=== PATIENT | female | born 1965 | race Hispanic/Latino ===

== ENCOUNTER 2018-10-21 08:12 | Outpatient (CLI) | payer OTHER ==
--- NOTE | 2018-10-21 09:17 | ULT ---
PELVIC ULTRASOUND INCLUDING TRANSABDOMINAL AND TRANSVAGINAL AND VASCULAR DUPLEX WITH COLOR AND SPECTR AL DOPPLER IMAGING: HISTORY: Pelvic pain, prior hysterectomy. FINDINGS: Status post hysterectomy. The left ovary is not seen. Right ovary is within normal limits. Vascular f low is documented. No evidence for ovarian torsion. No abnormal fluid collection. IMPRESSION: Unremarkable post hysterectomy pelvis. Transcribed Date/Time: 10/21/2018 9:29 AM
== END 2018-10-21 08:13 | disposition home or self-care (01) ==
LOC: SCSULT 08:12
PROVIDERS: ATTEND Family Medicine
DX: R10.2 Pelvic and perineal pain (principal); Z90.710 Acquired absence of both cervix and uterus
CPT/HCPCS: 76856

== ENCOUNTER 2018-10-21 08:17 | Outpatient (CLI) | payer OTHER ==
--- NOTE | 2018-10-21 10:08 | MMO ---
Bilateral MAMMO Bilat Screen [facility]. CLINICAL HISTORY: Patient is 52 years old and is seen for screening. The patient has no family history of breast cancer. The patient has no personal history of cancer. The patient has a history of right Excisional Biopsy in 2004 - benign. VIEWS: The views performed were: bilateral craniocaudal and bilateral mediolateral oblique. FILMS COMPARED: The present examination has been compared to prior imaging studies performed at [facility] on 04/11/2004 and 04/03/2016. This study has been interpreted with the assistance of computer-aided detection. MAMMOGRAM FINDINGS: The breasts are heterogeneously dense, which could obscure a lesion on mammography. There are multiple stable nodules of varying size seen in both breasts. There are no suspicious masses, suspicious calcifications, or new areas of architectural distortion. IMPRESSION: THERE IS NO MAMMOGRAPHIC EVIDENCE OF MALIGNANCY. A ROUTINE FOLLOW-UP MAMMOGRAM IN 1 YEAR IS RECOMMENDED. ACR BI-RADS Category 2 - Benign finding MAMMOGRAPHY NOTE: 1. A negative mammogram report should not delay a biopsy if a dominant of clinically suspicious mass is present. 2. Approximately 10% to 15% of breast cancers are not detected by mammography. 3. Adenosis and dense breasts may obscure an underlying neoplasm. Reported by: JULIAN DAWN MD Electonically Signed: [id number]
== END 2018-10-21 08:18 | disposition home or self-care (01) ==
LOC: SCSMAMMO 08:17
PROVIDERS: ATTEND Family Medicine
DX: Z12.31 Encounter for screening mammogram for malignant neoplasm of breast (principal)
CPT/HCPCS: 77067

== ENCOUNTER 2019-08-27 09:41 | Outpatient (CLI) | payer OTHER ==
--- NOTE | 2019-08-27 10:50 | MRI ---
LUMBAR SPINE MRI WITH AND WITHOUT CONTRAST: HISTORY: Low back pain, radiating down the left leg since February. COMPARISON: None. FINDINGS: Appropriate T1 marrow signal intensity of the lumbar vertebrae. Lumbar spine vertebral body height is maintained. No fracture. No significant STIR hyperintensity to suggest vertebral body edema or ligamentous injury. Appropriate signal intensity of the visualized paraspinal muscles and solid organs. Conus medullaris terminates at the T12-L1 disc space. Postcontrast images do not demonstrate any abnormal enhancement with regards to the contents of the t hecal sac including the cauda equina and conus medullaris. There is no abnormal enhancement with regards to the vertebral bodies. T12-L1: Minimal disc herniation without significant central canal stenosis or neural foramina are pat ent. L1-L2: Disc desiccation without significant loss of disc space height. No posterior disc abnormality. No significant central canal stenosis or significant neural foraminal narrowing. L2-L3: Adequate disc hydration. No significant loss of disc space height. No posterior disc abnormali ty. No significant central canal stenosis or significant neural foraminal narrowing. L3-L4: Disc desiccation without significant loss of disc space height. Broad-based disc bulge abuts t he thecal sac. No significant central canal stenosis. There is an annular fissure involving the right aspect of the disc at the level of the neural foramen. Annular fissure abuts the foraminal righ t L3 nerve root. There is mild stenosis of the right neural foramen due to disc material. Left neural foramen is patent. L4-L5: Disc desiccation with mild loss of disc space height. Broad-based disc bulge abuts the thecal sac. No significant central canal stenosis. Mild ligament flavum thickening and facet hypertrophy. Mild to moderate bilateral foraminal narrowing due to disc material. There is an annular fissure invo lving the right aspect of the disc at the level of the right neural foramen. L5-S1: Disc desiccation without significant loss of disc space height. Minimal right subarticular dis c herniation. There is contact upon the traversing right S1 nerve root without significant mass effect or obscuration. There is a left subarticular disc herniation which obscures the traversing lef t S1 nerve root. Mild to moderate bilateral neural foraminal narrowing. IMPRESSION: 1. Annular fissure involving the right foraminal disc at L3-L4 and L4-L5. There is mild right neural foraminal stenosis at L3-L4. Mild to moderate bilateral neural foraminal narrowing due to disc material. 2. L5-S1 disc herniation left subarticular zone with obscuration of the traversing left S1 nerve root . Transcribed Date/Time: 08/27/2019 11:03 AM
== END 2019-08-27 09:42 | disposition home or self-care (01) ==
LOC: TBSIIMAG 09:41
PROVIDERS: ATTEND Family Medicine
DX: M54.42 Lumbago with sciatica, left side (principal); M48.061 Spinal stenosis, lumbar region without neurogenic claudication; M51.27 Other intervertebral disc displacement, lumbosacral region; M53.3 Sacrococcygeal disorders, not elsewhere classified; Q05.7 Lumbar spina bifida without hydrocephalus
CPT/HCPCS: 72158

== ENCOUNTER 2021-09-08 15:42 | Outpatient (CLI) | payer BC | END 2021-09-08 15:43 | disposition home or self-care (01) | LOC: BICMAMMO 15:42 | PROVIDERS: ATTEND Family Medicine | DX: Z12.31 Encounter for screening mammogram for malignant neoplasm of breast (principal); Z91.89 Other specified personal risk factors, not elsewhere classified | CPT/HCPCS: 77063; 77067 ==

== ENCOUNTER 2023-05-30 14:03 | Outpatient (CLI) | payer BC | END 2023-05-30 14:04 | disposition home or self-care (01) | LOC: BICMAMMO 14:03 | PROVIDERS: ATTEND Family Medicine | DX: Z12.31 Encounter for screening mammogram for malignant neoplasm of breast (principal); Z91.89 Other specified personal risk factors, not elsewhere classified | CPT/HCPCS: 77063; 77067 ==